=== PATIENT | male | born 1950 | race Caucasian/White ===

== ENCOUNTER 2018-06-23 08:36 | Day surgery (SDC) | payer BC ==
[2018-06-22 13:05] VITALS: BMI 25.4
[2018-06-23] MEDS ORDERED: CEFAZOLIN 2 GM/50 ML BAG ONE (09:38)
[2018-06-23] MEDS ORDERED: Fentanyl 100 MCG/2 ML VIAL ONE ×2 (10:06→11:01)
[2018-06-23] MEDS ORDERED: Midazolam HCl 2 mg/2 ml Vial ONE (10:06)
--- NOTE | 2018-06-23 13:19 | EKG ---
Test Reason : PREOP Blood Pressure : / mmHG Vent. Rate : 047 BPM Atrial Rate : 047 BPM P-R Int : 142 ms QRS Dur : 084 ms QT Int : 474 ms P-R-T Axes : 054 031 059 degrees QTc Int : 419 ms Marked sinus bradycardia Abnormal ECG When compared with ECG of 07-DEC-2000 10:10, No significant change was found Confirmed by KYLIE DOSHI, DR. Cantor ([id number]) on 06/23/2018 1:19:10 PM Referred By: JOURDAN Confirmed By:DR. Sakshi ESPINAL MD
--- NOTE | 2018-06-23 14:00 | OP ---
DATE OF PROCEDURE: 06/23/2018 OPERATION PERFORMED: Open reduction and internal fixation of left humerus fracture. PREOPERATIVE DIAGNOSIS: Left humerus fracture, midshaft nonunion. POSTOPERATIVE DIAGNOSIS: Left humerus fracture, midshaft nonunion. COMPLICATIONS: None. ESTIMATED BLOOD LOSS: 100 mL. OPERATIONS AND MAINTENANCE TECHNICAN: Cyn Yi PA-C. IMPLANTS: Synthes 4.5 staggered 7-hole large fragment plate. INDICATIONS: Mr. Eller is a 67-year-old male who fell. He fractured the left humerus at the midshaft. He was treated initially with a clamshell brace. However, he failed to show progression of healing. He had gross motion. He was indicated for open reduction and internal fixation to reduce the fracture and hopefully restore and promote healing. Risks have been reviewed including radial nerve palsy, infection, nonunion, pain, scarring, bleeding, and others. DESCRIPTION OF OPERATION: Mr. Eller was identified in the preoperative holding area. His correct extremity was marked. He was carried to the operating room. He was positioned in supine. General anesthesia was induced. A multidisciplinary time-out was performed. The left upper extremity was prepped and draped in sterile fashion. We began the procedure with an anterolateral approach to the humerus. We dissected down through the subcutaneous tissues. The fascia was exposed. We opened the fascia. We then identified the brachialis muscle, which was incised exposing the underlying bone. We then cleared the bony edges of fibrous tissue. There was very minimal healing. We used a curette and rongeur. We then irrigated. Once we had clear bony edges, we reduced the fracture back into its anatomic position. This was held with a reduction clamp. We then placed a K-wire across the fracture site. Next, we placed a 7-hole Synthes plate large fragment over the anterior cortex. We placed a total of 6 screws, 3 proximal and 3 distal in a compression technique. This allowed rigid fixation. We took x-ray images in orthogonal planes. There were no complications. The patient was then taken to the recovery room in good condition without complication. Job ID: [id number]
[2018-06-23] MEDS ORDERED: Bupivacaine HCl 0.5%/Epinephrine 1:200,000/PF 30 ml Vial ONE (15:47)
[2018-06-23] MEDS ORDERED: PROPOFOL 200 MG/20 ML VIAL ONE (17:23)
[2018-06-23] MEDS ORDERED: Ondansetron PF 4 MG/2 ML Vial ONE (17:23)
[2018-06-23] MEDS ORDERED: ePHEDrine 50 MG/ML VIAL ONE (17:23)
[2018-06-23] MEDS ORDERED: Rocuronium Bromide 10 MG/ML (10ML VIAL) ONE (17:23)
[2018-06-23] MEDS ORDERED: Glycopyrrolate 0.2 MG/ML 5 ML SYRINGE ONE (17:23)
[2018-06-23] MEDS ORDERED: Lidocaine 1% PF 5 ML VIAL ONE (17:23)
--- NOTE | 2018-06-23 19:30 | RAD ---
LEFT HUMERUS TWO VIEW SERIES: 06/23/18 INDICATION: Fracture fixation. FINDINGS: There is a metallic plate with several screws transversing fracture site of the left humeral diaphysi s. IMPRESSION: Intraoperative imaging for fracture fixation of the left humerus. POS: BON
== END 2018-06-23 15:00 | disposition home or self-care (01) ==
LOC: SDC 08:36
PROVIDERS: ATTEND Orthopaedic Surgery
PROC: 0PSG04Z Reposition Left Humeral Shaft with Internal Fixation Device, Open Approach (ICD-10-PCS; principal; 2018-06-23)
DX: S42.332A Displaced oblique fracture of shaft of humerus, left arm, initial encounter for closed fracture (principal); M19.90 Unspecified osteoarthritis, unspecified site; Z98.890 Other specified postprocedural states; W19.XXXA Unspecified fall, initial encounter; Z79.899 Other long term (current) drug therapy
CPT/HCPCS: 76000; 93005; 93010; C1713; J0670; J2001; J2250; J2405; J2704; J3010; J3490

== ENCOUNTER 2025-01-09 10:31 | Emergency (ER) | payer MEDICARE, BC ==
[~2025-01-09 10:31] MED LIST: Iopamidol-370 76% 500 ML MDV (1 ML CHARGE) ONE
[2025-01-09 11:39] LABS: #Basophils 0.09 10x3/uL (0.0-0.2); #Eosinophils 0.21 10x3/uL (0.0-0.7); #Monocytes 1.28 10x3/uL (0.11-0.59); #Neutrophils 9.05 10x3/uL (1.40-6.50); %Basophils 0.7 % (0.0-1.0); %Eosinophils 1.6 % (0.0-10.0); %Lymphocytes 20.9 % (21.0-51.0); %Monocytes 9.5 % (0.0-10.0); %Neutrophils 66.9 % (42.0-75.0); Hematocrit 41.4 % (42.0-52.0); Hemoglobin 14.0 g/dL (14.0-18.0); Mean Corpuscular Hemoglobin 29.5 pg (27.0-31.0); Mean Corpuscular Volume 87.3 fL (78.0-98.0); Platelet Count 335 10x3/uL (130-400); Red Blood Cell (RBC) Count 4.74 mill/uL (4.70-6.10); White Blood Cell (WBC) Count 13.51 10x3/uL (4.8-10.8)
[2025-01-09 11:46] LABS: Bacteria/HPF None Seen HPF (None Seen); CAUTI Indications for Culture Dysuria,urgency,freq; Glucose, Urine (Dipstick) Normal (Negative); Leukocyte Negative Leu/uL (Negative); Protein, Urine (Dipstick) 30 mg/dL (Neg-Trace); RBC/HPF 0-3 HPF (0-3); Specific Gravity, Urine 1.032 (1.002-1.036); WBC/HPF 0-3 HPF (0-3)
[2025-01-09 11:48] LABS: Urine Culture Reflex No No
[2025-01-09 12:00] LABS: ALT (SGPT) 28 U/L (Less than 45); AST (SGOT) 39 U/L (11-34); Albumin 4.0 g/dL (3.1-4.5); Alkaline Phosphatase 86 U/L (40-110); Anion Gap 15 mmol/L (10-20); BUN (Urea Nitrogen) 13 mg/dL (8.4-25.7); Bilirubin, Total 0.8 mg/dL (0.3-1.2); Calc. Creatinine Clearance 0 mL/min (70-130); Calcium 9.3 mg/dL (7.8-10.44); Carbon Dioxide 27 mmol/L (23-31); Chloride 104 mmol/L (98-107); Globulin 3.5 g/dL (2.4-3.5); Glucose 119 mg/dL (83-110); Potassium 4.2 mmol/L (3.5-5.1); Sodium 142 mmol/L (136-145)
[2025-01-09] MEDS ORDERED: Droperidol 5 MG/2 ML VIAL ONE (12:30)
[2025-01-09] MEDS ORDERED: Pantoprazole 40 MG VIAL ONE (12:30)
== END 2025-01-09 14:40 | disposition home or self-care (01) ==
LOC: ERS 10:31
DX: K52.9 Noninfective gastroenteritis and colitis, unspecified (principal); K92.1 Melena; E03.9 Hypothyroidism, unspecified; I10 Essential (primary) hypertension
CPT/HCPCS: 74177; 80053; 81001; 85025; J1790; J2470; J2543; 36415; 96374; 96375